=== PATIENT | female | born 1945 | race Caucasian/White ===

== ENCOUNTER 2024-03-08 10:14 | Emergency (ER) | payer MEDICAID, MEDICARE, OTHER ==
[~2024-03-08] VITALS: Ht 167.6 cm; Wt 65.0 kg
[~2024-03-08 10:14] MED LIST: MOTRIN
[2024-03-08 10:19] VITALS: O2SAT 95
[2024-03-08 10:43] LABS: BASOPHILS % 0.5 % (0.0-2.0); HEMATOCRIT. 44.7 % (36.0-48.0); HEMOGLOBIN. 15.3 g/dL (12.0-16.0); LYMPHOCYTES % 29.6 % (20.0-50.0); MEAN CORPUSCULAR HEMOGLOBIN 31.1 pg (28.0-32.0); MEAN CORPUSCULAR HGB CONC 34.3 g/dL (31.0-37.0); MEAN CORPUSCULAR VOLUME 90.7 fL (81.0-99.0); MONOCYTES % 5.7 % (2.0-8.0); NEUTROPHILS % 63.2 % (40.0-76.0); PLATELET 352 x1000/uL (130-400); RED BLOOD CELL COUNT 4.93 mill/uL (4.2-5.4); RED CELL DISTRIBUTION WIDTH 13.7 % (11.6-14.6); WHITE BLOOD COUNT 10.6 x1000/uL (4.5-11.0)
[2024-03-08 10:53] LABS: CHLORIDE 102 mEq/L (98-107); POTASSIUM 3.5 mEq/L (3.5-5.1); SODIUM 138 mEq/L (136-145)
[2024-03-08 10:54] LABS: CALCIUM 10.3 mg/dL (8.7-10.4); CARBON DIOXIDE 25 mEq/L (21-32)
[2024-03-08 10:59] LABS: CREATININE 0.6 mg/dL (0.6-1.0); GLUCOSE 142 mg/dL (70-105); UREA NITROGEN BLOOD 8 mg/dL (9-23)
[2024-03-08 11:00] LABS: TROPONIN I HIGH SENSITIVITY 4 ng/L (3.0-34)
[2024-03-08] MEDS: ACETAMINOPHEN 325MG TABLET PO ONE (12:35)
[2024-03-08 15:41] VITALS: BP 155/87; PULSE 82; RESP 17; TEMP 98.9
== END 2024-03-08 16:05 | disposition short-term general hospital (02) ==
LOC: ER 10:14 → EDBEDREQ 13:41 → ER 16:05
DX: R55 Syncope and collapse (principal); E78.00 Pure hypercholesterolemia, unspecified; I10 Essential (primary) hypertension
CPT/HCPCS: 36415; 70486; 71045; 80048; 83880; 84484; 85025; 93005; 99285